=== PATIENT | female | born 1980 | race American Indian/Alaskan Native ===

== ENCOUNTER 2018-09-30 19:21 | Emergency (ER) | payer SELFPAY ==
[2018-09-30 19:48] VITALS: BP 168/108
--- NOTE | 2018-09-30 21:28 | Emergency Department Report ---
ED ENT HPI - General Chief complaint: Dental/Oral Stated complaint: TOOTH ACHE/SWELLING Time Seen by Provider: 09/30/18 21:21 Source: patient Mode of arrival: Ambulatory Limitations: No Limitations - History of Present Illness MD complaint: tooth pain Location: tooth # Severity: mild Quality: aching Consistency: constant Improves with: none Worsens with: none Context- Dental: poor dental care Associated Symptoms: toothache. denies: sore throat, tinnitus, discharge from ear, rhinorrhea - Related Data Previous Rx's Medication Instructions Recorded Last Taken Type Amoxicillin 500 mg PO QID #40 capsule 09/30/18 Unknown Rx Chlorhexidine Mouthwash [Peridex] 15 ml MM BID #473 bottle 09/30/18 Unknown Rx Ketorolac [Toradol] 10 mg PO Q6H PRN #15 tablet 09/30/18 Unknown Rx Lidocaine Viscous 2% 15 ml MM Q4H #240 udc 09/30/18 Unknown Rx Allergies Allergy/AdvReac Type Severity Reaction Status Date / Time No Known Allergies Allergy Unverified 09/30/18 19:47 ED Dental HPI - General Chief complaint: Dental/Oral Stated complaint: TOOTH ACHE/SWELLING Time Seen by Provider: 09/30/18 21:21 Source: patient Mode of arrival: Ambulatory Limitations: No Limitations - Related Data Previous Rx's Medication Instructions Recorded Last Taken Type Amoxicillin 500 mg PO QID #40 capsule 09/30/18 Unknown Rx Chlorhexidine Mouthwash [Peridex] 15 ml MM BID #473 bottle 09/30/18 Unknown Rx Ketorolac [Toradol] 10 mg PO Q6H PRN #15 tablet 09/30/18 Unknown Rx Lidocaine Viscous 2% 15 ml MM Q4H #240 udc 09/30/18 Unknown Rx Allergies Allergy/AdvReac Type Severity Reaction Status Date / Time No Known Allergies Allergy Unverified 09/30/18 19:47 ED Review of Systems ROS: Stated complaint: TOOTH ACHE/SWELLING Other details as noted in HPI Constitutional: denies: chills, fever Eyes: denies: eye pain, eye discharge, vision change ENT: dental pain. denies: ear pain, throat pain Respiratory: denies: cough, shortness of breath, wheezing Cardiovascular: denies: chest pain, palpitations Endocrine: no symptoms reported Gastrointestinal: denies: abdominal pain, nausea, diarrhea Genitourinary: denies: urgency, dysuria, discharge Musculoskeletal: denies: back pain, joint swelling, arthralgia Skin: denies: rash, lesions Neurological: denies: headache, weakness, paresthesias Psychiatric: denies: anxiety, depression Hematological/Lymphatic: denies: easy bleeding, easy bruising ED Past Medical Hx - Past Medical History Previous Medical History?: No - Surgical History Past Surgical History?: No - Social History Smoking Status: Never Smoker Substance Use Type: None - Medications Home Medications: Home Medications Medication Instructions Recorded Confirmed Last Taken Type Amoxicillin 500 mg PO QID #40 capsule 09/30/18 Unknown Rx Chlorhexidine Mouthwash [Peridex] 15 ml MM BID #473 bottle 09/30/18 Unknown Rx Ketorolac [Toradol] 10 mg PO Q6H PRN #15 tablet 09/30/18 Unknown Rx Lidocaine Viscous 2% 15 ml MM Q4H #240 udc 09/30/18 Unknown Rx ED Physical Exam - General Limitations: No Limitations General appearance: alert, in no apparent distress - Head Head exam: Present: atraumatic, normocephalic - Eye Eye exam: Present: normal appearance - ENT ENT exam: Present: mucous membranes moist, other - Neck Neck exam: Present: normal inspection, full ROM. Absent: meningismus, lymphadenopathy - Respiratory Respiratory exam: Present: normal lung sounds bilaterally, rales, rhonchi, chest wall tenderness. Absent: respiratory distress, decreased breath sounds, prolonged expiratory - Cardiovascular Cardiovascular Exam: Present: regular rate, normal rhythm. Absent: systolic murmur, diastolic murmur, rubs, gallop - GI/Abdominal GI/Abdominal exam: Present: soft, normal bowel sounds - Extremities Exam Extremities exam: Present: normal inspection - Back Exam Back exam: Present: normal inspection - Neurological Exam Neurological exam: Present: alert, oriented X3 - Psychiatric Psychiatric exam: Present: normal affect, normal mood - Skin Skin exam: Present: warm, dry, intact, normal color. Absent: rash ED Course Vital Signs 09/30/18 19:41 Temperature 98.6 F Pulse Rate 80 Respiratory 16 Rate Blood Pressure 168/108 O2 Sat by Pulse 98 Oximetry Critical care attestation.: If time is entered above; I have spent that time in minutes in the direct care of this critically ill patient, excluding procedure time. ED Disposition Clinical Impression: Dentalgia, Dental infection Disposition: [id number] TO HOME OR SELFCARE Is pt being admited?: No Does the pt Need Aspirin: No Condition: Stable Instructions: Toothache (ED), Dental Caries (ED), Benzocaine (By mouth) Prescriptions: Amoxicillin 500 mg PO QID #40 capsule Chlorhexidine Mouthwash [Peridex] 15 ml MM BID #473 bottle Ketorolac [Toradol] 10 mg PO Q6H PRN #15 tablet PRN Reason: Pain Lidocaine Viscous 2% 15 ml MM Q4H #240 [facility] [place] Referrals: PRIMARY CARE, [Primary Care Provider] - 3-5 Days [facility] [Outside] - 3-5 Days
[2018-09-30] MEDS ORDERED: NORCO 5/325 PO STA (21:31)
[2018-09-30] MEDS ORDERED: TORADOL PO STA (21:47)
[2018-09-30] MEDS ORDERED: IBUPROFEN PO ONE (21:50)
== END 2018-09-30 21:57 | disposition home or self-care (01) ==
LOC: ED 19:21
DX: K08.89 Other specified disorders of teeth and supporting structures (principal)
CPT/HCPCS: 99282